=== PATIENT | female | born 1980 | race Caucasian/White ===

== ENCOUNTER 2017-10-29 11:35 | Outpatient (CLI) | payer OTHER ==
[2017-10-29 12:55] LABS: ALBUMIN 3.4 g/dL (3.4-5.0); ANION GAP 12.7 (8-16); CHOL/HDL RATIO 2.9 (1-4.5); CREATININE 0.9 mg/dL (0.6-1.3); POTASSIUM 4.7 mmol/L (3.5-5.1); THYROID STIMULATING HORMONE 1.73 uIU/mL (0.34-3.74); TOTAL BILIRUBIN 0.4 mg/dL (0.0-1.0)
== END 2017-10-29 22:16 | disposition home or self-care (01) ==
LOC: MLB 11:35
DX: Z00.00 Encounter for general adult medical examination without abnormal findings (principal)
CPT/HCPCS: 36415; 80053; 83036; 84436; 84443

== ENCOUNTER 2019-04-20 18:43 | Outpatient (CLI) | payer OTHER | END 2019-04-20 21:08 | disposition home or self-care (01) | LOC: MLB 18:43 | DX: E34.9 Endocrine disorder, unspecified (principal) | CPT/HCPCS: 36415; 84144 ==

== ENCOUNTER 2019-05-02 18:14 | Outpatient (CLI) | payer OTHER | END 2019-05-02 20:07 | disposition home or self-care (01) | LOC: MLB 18:14 | DX: N91.4 Secondary oligomenorrhea (principal) | CPT/HCPCS: 36415; 84144; 84702 ==

== ENCOUNTER 2019-10-22 08:09 | Outpatient (CLI) | payer OTHER | END 2019-10-22 20:38 | disposition home or self-care (01) | LOC: MLB 08:09 | DX: N91.2 Amenorrhea, unspecified (principal) | CPT/HCPCS: 36415; 84144; 84702 ==

== ENCOUNTER 2020-03-12 09:22 | Outpatient (CLI) | payer OTHER ==
[2020-03-12 09:55] LABS: BASOPHILS % (AUTO) 0.3 % (0.0-2.0); EOSINOPHILS # (AUTO) 0.1 K/uL (0-0.4); EOSINOPHILS % (AUTO) 2.1 % (0.0-4.0); HEMATOCRIT 41.2 % (36-48); HEMOGLOBIN 13.8 g/dL (12.0-16.0); LYMPHOCYTES # (AUTO) 2.1 K/uL (2.5-16.5); LYMPHOCYTES % (AUTO) 35.8 % (20.5-51.1); MEAN CORPUSCULAR HEMOGLOBIN 30 pg (27-31); MEAN CORPUSCULAR HGB CONC 34 g/dL (33-37); MEAN CORPUSCULAR VOLUME 89.5 fL (80-94); MONOCYTES # (AUTO) 0.5 K/uL (0.8-1.0); MONOCYTES % (AUTO) 9.1 % (1.7-9.3); NEUTROPHILS # (AUTO) 3.1 K/uL (1.8-7.7); NEUTROPHILS % (AUTO) 52.7 % (42.2-75.2); PLATELET COUNT (AUTO) 242 K/uL (140-450); RED BLOOD CELL COUNT(AUTO) 4.61 MIL/uL (4.20-5.40); RED CELL DISTRIBUTION WIDTH 13.8 % (11.6-13.7); WHITE BLOOD COUNT (AUTO) 5.9 K/uL (4.8-10.8)
[2020-03-12 10:21] LABS: ALBUMIN 3.5 g/dL (3.4-5.0); ANION GAP 12.3 (8-16); CHOL/HDL RATIO 3.3 (1-4.5); POTASSIUM 4.3 mmol/L (3.5-5.1); THYROID STIMULATING HORMONE 3.19 uIU/mL (0.34-3.74); TOTAL BILIRUBIN 0.4 mg/dL (0.0-1.0)
[2020-03-12 10:41] LABS: APPEARANCE,URINE CLOUDY (CLEAR); BILIRUBIN,URINE NEGATIVE (NEGATIVE); BLOOD, URINE TRACE-I (NEGATIVE); COLOR,URINE DARK YELLOW (YELLOW); LEUKOCYTE ESTERASE ,URINE NEGATIVE (NEGATIVE); NITRITE, URINE NEGATIVE (NEGATIVE); UGLUCOSE NEGATIVE (NEGATIVE)
[2020-03-12 11:13] LABS: RBC,URINE 0-5 /HPF (0-5); WBC,URINE 0-5 /HPF (0-5)
[2020-03-13 09:12] LABS: FOLIC ACID > 20.00 ng/mL (>3.0)
== END 2020-03-12 20:05 | disposition home or self-care (01) ==
LOC: MLB 09:22
DX: N91.2 Amenorrhea, unspecified (principal); Z13.228 Encounter for screening for other metabolic disorders; Z13.21 Encounter for screening for nutritional disorder; Z13.1 Encounter for screening for diabetes mellitus; Z13.0 Encounter for screening for diseases of the blood and blood-forming organs and certain disorders involving the immune mechanism; Z13.220 Encounter for screening for lipoid disorders
CPT/HCPCS: 36415; 80053; 81001; 82306; 82607; 82746; 83036; 83516; 84144; 84403; 84443; 84702; 85025; 86038; 86140

== ENCOUNTER 2020-04-14 13:31 | Outpatient (CLI) | payer OTHER ==
[2020-04-15 13:01] LABS: LUTEINIZING HORMONE 4.8 mIU/mL (2.4 - 12.6)
[2020-04-15 13:02] LABS: ESTRADIOL SERUM 60.5 pg/mL
== END 2020-04-14 20:14 | disposition home or self-care (01) ==
LOC: MLB 13:31
DX: N80.0 Endometriosis of uterus (principal); R10.2 Pelvic and perineal pain
CPT/HCPCS: 36415; 82670; 83002; 84403

== ENCOUNTER 2020-08-22 11:32 | Outpatient (CLI) | payer OTHER ==
[2020-08-23 08:08] LABS: LUTEINIZING HORMONE 0.3 mIU/mL (.)
== END 2020-08-22 21:04 | disposition home or self-care (01) ==
LOC: MLB 11:32
DX: E28.9 Ovarian dysfunction, unspecified (principal)
CPT/HCPCS: 36415; 82670; 83001; 83002; 84144

== ENCOUNTER 2020-12-02 09:36 | Outpatient (CLI) | payer OTHER | END 2020-12-02 20:49 | disposition home or self-care (01) | LOC: MLB 09:36 | DX: N91.2 Amenorrhea, unspecified (principal) | CPT/HCPCS: 36415; 82670 ==

== ENCOUNTER 2021-04-13 10:36 | Emergency (ER) | payer OTHER ==
[~2021-04-13] VITALS: Ht 157.5 cm; Wt 65.3 kg
[2021-04-13 10:36] VITALS: BP 108/68
--- NOTE | 2021-04-13 10:36 | NUR ---
Patient BIBA ALS, transferred to bed 7. RN evaluating the patient at bedside.
--- NOTE | 2021-04-13 10:40 | NUR ---
Note undone in EDM - 04/13/21 at 1801 by BRIDGETTE 40 Y/O FEMALE MARIA DOLORESA FROM DR OFFICE C/O POSSIBLE SYNCOPAL EPISODE OR "SEIZURE ACTIVITY". PT WAS AT DR IRIZARRY FOR IVF. PT HAD EMBRYO TRANSFER 04/08 AND WAS EXPERICING CRAMPING AND DIZZINESS WITH STANDING. PT STATES SHE WAS FEELING DIZZY LEANED ON CHAIR AND FAINTED. DENIES HITTING HEAD. PMH:DENIES NKDA
--- NOTE | 2021-04-13 10:40 | NUR ---
40 Y/O FEMALE BIBA FROM DR CESAR C/O POSSIBLE SYNCOPAL EPISODE OR "SEIZURE ACTIVITY". PT WAS AT DR IRIZARRY FOR IVF. PT HAD EMBRYO TRANSFER 04/08 AND WAS EXPERICING CRAMPING AND DIZZINESS WITH STANDING. PT STATES SHE WAS FEELING DIZZY AT THE OFFICE AND LEANED ON CHAIR AND FAINTED. DENIES HITTING HEAD. PT STATES SHE HAS NO HX OF SEIZURES. DENIES PAIN, DENIES MAE. PT A/O X4 WITH EVEN AND UNLABORED RESPIRATIONS. PT LAYING IN BED WITH BED IN LOWEST POSITION, BRAKES LOCKED, X2 SIDERAILS UP FOR SAFETY. PT ON PLAYGROUND AIDE. SEIZURE PRECAUTIONS IN PLACE. AT BEDSIDE PMH:DENIES NKDA
--- NOTE | 2021-04-13 10:45 | NUR ---
Dr. Wilson is evaluating the patient at bedside.
[2021-04-13] MEDS ORDERED: NACL 0.9% 1,000 ML IV ONE (10:55)
--- NOTE | 2021-04-13 11:02 | NUR ---
PT AMBULATED TO RESTROOM FOR URINE SAMPLE WITH STEADY GAIT
[2021-04-13 12:03] LABS: BASOPHILS % (AUTO) 0.3 % (0.0-2.0); EOSINOPHILS # (AUTO) 0.1 K/uL (0-0.4); EOSINOPHILS % (AUTO) 1.1 % (0.0-4.0); LYMPHOCYTES % (AUTO) 9.9 % (20.5-51.1); MEAN CORPUSCULAR HEMOGLOBIN 31 pg (27-31); MEAN CORPUSCULAR HGB CONC 33 g/dL (33-37); MEAN CORPUSCULAR VOLUME 92.5 fL (80-94); MONOCYTES # (AUTO) 0.9 K/uL (0.8-1.0); MONOCYTES % (AUTO) 8.6 % (1.7-9.3); NEUTROPHILS # (AUTO) 8.3 K/uL (1.8-7.7); NEUTROPHILS % (AUTO) 80.1 % (42.2-75.2); PLATELET COUNT (AUTO) 151 K/uL (140-450); RED BLOOD CELL COUNT(AUTO) 2.15 MIL/uL (4.20-5.40); RED CELL DISTRIBUTION WIDTH 12.7 % (11.6-13.7); WHITE BLOOD COUNT (AUTO) 10.4 K/uL (4.8-10.8)
[2021-04-13 12:08] LABS: HEMATOCRIT 19.9 % (36-48); HEMOGLOBIN 6.6 g/dL (12.0-16.0)
--- NOTE | 2021-04-13 12:12 | NUR ---
Dr. Wilson is reevaluating the patient at bedside.
--- NOTE | 2021-04-13 12:40 | NUR ---
LAB AT BEDSIDE FOR REDRAW
[2021-04-13 12:57] LABS: BASOPHILS # (AUTO) 0.1 K/uL (0.00-0.22); BASOPHILS % (AUTO) 0.3 % (0.0-2.0); EOSINOPHILS # (AUTO) 0.1 K/uL (0-0.4); EOSINOPHILS % (AUTO) 0.5 % (0.0-4.0); HEMATOCRIT 39.1 % (36-48); HEMOGLOBIN 12.9 g/dL (12.0-16.0); LYMPHOCYTES % (AUTO) 9.6 % (20.5-51.1); MEAN CORPUSCULAR HEMOGLOBIN 30 pg (27-31); MEAN CORPUSCULAR HGB CONC 33 g/dL (33-37); MEAN CORPUSCULAR VOLUME 91.5 fL (80-94); MONOCYTES # (AUTO) 1.2 K/uL (0.8-1.0); MONOCYTES % (AUTO) 5.7 % (1.7-9.3); NEUTROPHILS # (AUTO) 17.3 K/uL (1.8-7.7); NEUTROPHILS % (AUTO) 83.9 % (42.2-75.2); PLATELET COUNT (AUTO) 306 K/uL (140-450); RED BLOOD CELL COUNT(AUTO) 4.28 MIL/uL (4.20-5.40); RED CELL DISTRIBUTION WIDTH 13.1 % (11.6-13.7)
[2021-04-13 13:09] LABS: WHITE BLOOD COUNT (AUTO) 20.6 K/uL (4.8-10.8)
[2021-04-13 13:23] LABS: ALBUMIN 2.8 g/dL (3.4-5.0); ANION GAP 7.6 (8-16); CARBON DIOXIDE 26.2 mmol/L (21-32); POTASSIUM 4.8 mmol/L (3.5-5.1); THYROID STIMULATING HORMONE 3.61 uIU/mL (0.34-3.74)
[2021-04-13 13:34] LABS: TOTAL BILIRUBIN 0.2 mg/dL (0.0-1.0)
[2021-04-13 14:55] VITALS: BP 102/58
--- NOTE | 2021-04-13 14:55 | NUR ---
Patient discharged with v/s stable. Written and verbal after care instructions given and explained. Patient verbalized understanding. Ambulatory with steady gait. All questions addressed prior to discharge. Advised to follow up with PMD.
== END 2021-04-13 14:55 | disposition home or self-care (01) ==
LOC: MED 10:36
DX: R55 Syncope and collapse (principal); D72.829 Elevated white blood cell count, unspecified; F15.90 Other stimulant use, unspecified, uncomplicated; Z98.890 Other specified postprocedural states
CPT/HCPCS: 36415; 80053; 81002; 81025; 84443; 84484; 85025; 93005; 96360; 99284; J7030